=== PATIENT | female | born 1960 | race Caucasian/White ===

== ENCOUNTER 2019-05-15 19:31 | Inpatient (IN) ==
[2019-05-15 20:19] LABS: Hematocrit 44.2 % (35.3-44.9); Hemoglobin 14.8 g/dL (11.5-15.4); Mean Corpuscular HGB Conc 33.5 g/dL (31.6-35.5); Mean Corpuscular Hemoglobin 30.6 pg (28.0-33.3); Mean Corpuscular Volume 91.5 fL (83.0-100.0); Mean Platelet Volume 9.9 fL (9.4-12.4); Platelet Count 286 K/mcL (140-400); Red Blood Count 4.83 M/mcL (3.82-4.97); Red Cell Distribution Width 12.9 % (11.5-14.5); White Blood Count 9.5 K/mcL (4.3-11.1)
[2019-05-15 20:21] LABS: Prothrombin Time 11.1 Seconds (9.4-12.1)
[2019-05-15 20:24] LABS: Activated Partial Thrombo Time 36.6 Seconds (26.0-36.0)
--- NOTE | 2019-05-15 20:41 | Emergency Department Note ---
Disposition Clinical Impression: Neurologic abnormality Disposition: Admitted As Inpatient Condition: Fair Forms: ED Satisfaction Letter Time of Disposition: 21:00 Neuro HPI - General Chief Complaint: ED Neuro Symptoms/Deficit Stated Complaint: neuro symptoms since wednesday Time Seen by Provider: 05/15/19 19:40 Source: patient, family Limitations: no limitations Nursing Notes Reviewed: Yes Vital Signs Reviewed: Yes - History of Present Illness HPI Narrative: 59-year-old female brought to emergency department for evaluation of neurologic deficit. Patient states she has had weakness and paresthesias of the right lower extremity and drooping of the left lower face with slurred speech for the past 3 days. Patient states the symptoms were very severe this morning, she tried to see her primary care provider. When she was unable to get an appointment with that with them she came to the emergency department for further evaluation. She does state that her symptoms have improved significantly over the past 2 hours prior to her evaluation. She denies recent fever, chills, nausea, vomiting, recent trauma. She does have a previous history of CVA that caused slurred speech in the past. She did not have any long lasting deficits after that CVA. Patient has not had any recent changes in her medications. She denies dysuria, hematuria, hematochezia, melena. Denies chest pain, palpitations, shortness of breath, syncope. - Related Data Home Medications: Home Medications Medication Instructions Recorded Confirmed Albuterol Sulfate [Ventolin Hfa] 2 puff IH Q4H PRN 09/27/18 05/15/19 Amlodipine Besylate 10 mg PO DAILY 09/27/18 05/15/19 Atorvastatin Calcium [Lipitor] 80 mg PO HS 09/27/18 05/15/19 Cholecalciferol (D-3) [Vitamin D] 2,000 unit PO DAILY 09/27/18 05/15/19 Losartan/Hydrochlorothiazide 1 tab PO DAILY 09/27/18 05/15/19 [Hyzaar 100-25 Tablet] Metoprolol Succinate 50 mg PO DAILY 09/27/18 05/15/19 Ropinirole HCl [Requip] 0.5 mg PO HS 09/27/18 05/15/19 Sertraline [Zoloft] 100 mg PO DAILY 09/27/18 05/15/19 Previous Rx's Medication Instructions Recorded Aspirin 81 mg PO DAILY #30 tab.chew 09/28/18 Clopidogrel [Plavix] 75 mg PO DAILY #35 tablet 09/28/18 Levothyroxine [Synthroid] 175 mcg PO DAILY@0630 #30 tablet 09/28/18 Allergies/Adverse Reactions: Allergies Allergy/AdvReac Type Severity Reaction Status Date / Time Penicillins Allergy See Verified 05/15/19 19:54 Comments All systems ED: reviewed and negative except as stated. Review of Systems: As Per HPI Past Medical History - Past Medical History Attestation: Yes The following information was validated with the patient. Source: patient Medical history: Reports: asthma, CVA, hyperlipidemia, hypertension, thyroid disease Psychiatric history: Reports: anxiety, depression - Social History Smoking Status: Former smoker Smokeless Tobacco Status: No Alcohol use: Reports: none Drug use: Reports: none Physical Exam General: Alert and in no acute distress Skin: Warm, dry, intact Head: Normocephalic and atraumatic Neck: Supple, trachea midline and no tenderness Cardiovascular: RRR, no murmur, normal perfusion Respiratory: CTAB, no wheezing, cough, or respiratory distress Musculoskeletal: Normal strength, no tenderness, swelling or deformity GI: Soft, nontender, nondistended. Bowel sounds present Neuro: A&O to person, place, time and situation. Muscular strength intact to the bilateral upper and lower extremities. Sensation intact to bilateral upper and lower extremities. Cranial nerves intact to examination however she does have some mild dysarthria present during the exam. No facial droop. Psychiatric: cooperative and appropriate mood and affect. - General Limitations: no limitations General appearance: alert Course Vital Signs Temperature 98.3 F 05/15/19 19:33 Pulse Rate 91 05/15/19 19:33 Respiratory Rate 16 05/15/19 19:33 Blood Pressure 169/90 05/15/19 19:33 O2 Sat by Pulse Oximetry 95 05/15/19 19:33 Temperature 98.3 F 05/15/19 19:50 Pulse Rate 66 05/15/19 20:59 Respiratory Rate 16 05/15/19 20:59 Blood Pressure 137/59 05/15/19 20:59 O2 Sat by Pulse Oximetry 95 05/15/19 20:59 Oxygen Delivery Oxygen Delivery Room Air Neuro Symptoms/Deficit - MDM Narrative Medical decision making narrative: CT of the head did not show evidence of acute intracranial hemorrhage. Patient will be admitted to the hospitalist for further care and evaluation with need for likely MRI. Patient is not a TPA candidate or a candidate for thrombectomy has her symptoms have been present for multiple days. Patient is comfortable with the plan for admission to hospital. - Medical Records Medical records reviewed: Yes I reviewed the patient's medical records. - Lab Data Lab results reviewed: Yes I reviewed the patient's lab results. Result diagrams: 05/15/19 19:53 05/15/19 19:53 Lab Results 05/15/19 05/15/19 05/15/19 Range/Units 19:53 19:53 19:53 WBC 9.5 (4.3-11.1) K/mcL RBC 4.83 (3.82-4.97) M/mcL Hgb 14.8 (11.5-15.4) g/dL Hct 44.2 (35.3-44.9) % MCV 91.5 (83.0-100.0) fL MCH 30.6 (28.0-33.3) pg MCHC 33.5 (31.6-35.5) g/dL RDW 12.9 (11.5-14.5) % Plt Count 286 (140-400) K/mcL MPV 9.9 (9.4-12.4) fL PT 11.1 (9.4-12.1) Seconds INR 1.0 APTT 36.6 H (26.0-36.0) Seconds Sodium 139 (136-145) mEq/L Potassium 3.6 (3.5-5.1) mEq/L Chloride 104 (98-107) mEq/L Carbon Dioxide 27 (23-29) mEq/L BUN 18 (6-20) mg/dL Creatinine 1.08 (0.60-1.20) mg/dL Est GFR ( Amer) > 60 (> 60) Est GFR (Non-Af Amer) 52 L (> 60) BUN/Creatinine Ratio 17 (6-26) Glucose 125 H (70-105) mg/dL POC Glucose (70-99) mg/dL Calculated Osmolality 291 (280-300) Calcium 9.7 (8.6-10.3) mg/dL Troponin I < 0.03 (< 0.04) ng/mL 05/15/19 Range/Units 20:42 WBC (4.3-11.1) K/mcL RBC (3.82-4.97) M/mcL Hgb (11.5-15.4) g/dL Hct (35.3-44.9) % MCV (83.0-100.0) fL MCH (28.0-33.3) pg MCHC (31.6-35.5) g/dL RDW (11.5-14.5) % Plt Count (140-400) K/mcL MPV (9.4-12.4) fL PT (9.4-12.1) Seconds INR APTT (26.0-36.0) Seconds Sodium (136-145) mEq/L Potassium (3.5-5.1) mEq/L Chloride (98-107) mEq/L Carbon Dioxide (23-29) mEq/L BUN (6-20) mg/dL Creatinine (0.60-1.20) mg/dL Est GFR ( Amer) (> 60) Est GFR (Non-Af Amer) (> 60) BUN/Creatinine Ratio (6-26) Glucose (70-105) mg/dL POC Glucose 116 H (70-99) mg/dL Calculated Osmolality (280-300) Calcium (8.6-10.3) mg/dL Troponin I (< 0.04) ng/mL - Radiology Data Radiology results reviewed: Yes I reviewed the patient's radiology results. - EKG Data EKG attestation: Yes I reviewed and interpreted this EKG. EKG results narrative: Normal sinus rhythm with a rate of 68 without evidence of STEMI or other dysrhythmia. QTC 434, QRS of 93 TPA Checklist - LKW: 3-4.5 hrs Add. Warnings/Precautions Patient/family understanding: The patient/family members have been counseled and understood the risk, benefit, and alternatives of treatment.
[2019-05-15] MEDS ORDERED: Aspirin 81 MG TAB.CHEW PO ONE (20:42)
[2019-05-15 20:55] LABS: BUN/Creatinine Ratio 17 (6-26); Blood Urea Nitrogen 18 mg/dL (6-20); Calcium 9.7 mg/dL (8.6-10.3); Carbon Dioxide 27 mEq/L (23-29); Chloride 104 mEq/L (98-107); Glucose 125 mg/dL (70-105); Osmolality,Calculated 291 (280-300); Potassium 3.6 mEq/L (3.5-5.1); Sodium 139 mEq/L (136-145); Troponin I < 0.03 ng/mL (< 0.04); eGFR For African Americans > 60 (> 60); eGFR For Non-African Americans 52 (> 60)
[2019-05-15] MEDS ORDERED: Naloxone 0.4 MG/ML INJ IVP PRN (21:14)
[2019-05-16] MEDS: rOPINIRole 0.25 MG TABLET PO SCH ×2 (00:20→20:54)
--- NOTE | 2019-05-16 00:59 | Internal Med History&Physical ---
Date of Encounter: 05/16/19 Time of Encounter: 00:57 Internal Medicine - H&P: HPI Chief complaint: Strokelike symptoms History of present illness: Ms. Anaya is a 59 year old female with a PMH of asthma, CVA, thyroid disease, HTN, arthritis, HLD who presented to [facility] ED DUE to concern for strokelike symptoms. Patient states that last Wednesday she noted that her entire right leg felt numb as if it had gone to sleep which occurred as she was getting out of her car. She thought maybe it was from sitting too long. Symptoms persisted but patient nonetheless went on with her day. The following Wednesday patient noted slurred speech early in the morning. Patient decided to wait and see her primary care physician Wednesday morning, however, discovered that he was unavail able and decided to come in for further evaluation. Upon arrival to the ED, patients vital signs were as follows: Temp 97.6, HR 93, RR 24, BP 169/90, pulse ox 95. Laboratory analysis was unremarkable. CT of the head showed no acute intracranial abnormality, but demonstrated diffuse atrophic changes with findings suggesting chronic microvascular ischemia and small old infarcts in the basal ganglia and arias radiata bilaterally. EKG demonstrated no evidence of ischemic changes, unchanged from previous EKG. Patient was given a loading dose of aspirin in the ED. Patient was seen and examined at bedside; reports that her symptoms have slightly improved but still states she feels her speech is still slightly slurred. She denies chest pain, vertigo, lightheadedness, visual disturbances, weakness, headache, blurred vision palpitations. Past Med Surg Social Fam HX - Past Medical History Medical history: asthma, CVA, hyperlipidemia, hypertension, thyroid disease Psychiatric history: anxiety, depression - Past Surgical History Surgical History: appendectomy, hysterectomy - Social History Smoking Status: Former smoker Smokeless Tobacco Status: No Alcohol use: none Drug use: none - Family History Father Living Status: Still Living Hx Family Cardiac Disorders: Yes (double bipass) Hx Family Respiratory Disorders: No Hx Family Cancer: No Hx Family GI Disorders: No Hx Family Genitourinary Disorders: No Hx Family Endocrine Disorder: Yes (thyroid, DM) Hx Family Musculoskeletal Disorders: No Hx Family Neuromuscular Disorders: No Hx Family Neurologic Disorders: No Hx Family Autoimmune Disorders: No Mother Adopted: No Living Status: Age at : 57 Cause of : cancer Hx Family Cardiac Disorders: No Hx Family Respiratory Disorders: No Hx Family Cancer: Yes (unknown) Hx Family GI Disorders: No Hx Family Genitourinary Disorders: No Hx Family Endocrine Disorder: No Hx Family Musculoskeletal Disorders: No Hx Family Neuromuscular Disorders: No Hx Family Neurologic Disorders: No Hx Family Autoimmune Disorders: No Hx Family Reproductive Disorders: No Internal Medicine - H&P: Meds Albuterol Sulfate [Ventolin Hfa] 2 puff IH Q4H PRN 09/27/18 [History] Amlodipine Besylate 10 mg PO DAILY 09/27/18 [History] Atorvastatin Calcium [Lipitor] 80 mg PO HS 09/27/18 [History] Cholecalciferol (D-3) [Vitamin D] 2,000 unit PO DAILY 09/27/18 [History] Losartan/Hydrochlorothiazide [Hyzaar 100-25 Tablet] 1 tab PO DAILY 09/27/18 [History] Metoprolol Succinate 50 mg PO DAILY 09/27/18 [History] Ropinirole HCl [Requip] 0.5 mg PO HS 09/27/18 [History] Sertraline [Zoloft] 100 mg PO DAILY 09/27/18 [History] Aspirin 81 mg PO DAILY #30 tab.chew 09/28/18 [Rx] Clopidogrel [Plavix] 75 mg PO DAILY #35 tablet 09/28/18 [Rx] Levothyroxine [Synthroid] 175 mcg PO DAILY@0630 #30 tablet 09/28/18 [Rx] Allergy/AdvReac Type Severity Reaction Status Date / Time Penicillins Allergy See Verified 05/15/19 19:54 Comments All Systems PM: A 10-system review of systems was performed and is negative for pertinent findings except as documented above in the HPI. - Constitutional Constitutional: no chills, no fever(s), no night sweats - EENT Eyes: no change in vision, no discharge, no pain, no photophobia Ears: no ear discharge, no ear pain, no tinnitus Nose, mouth and throat: no dysphagia, no nasal discharge, no neck pain, no sore throat - Cardiovascular Cardiovascular ROS IM: no chest pain, no diaphoresis, no dyspnea, no lightheadedness, no palpitations, no syncope - Respiratory Respiratory: no cough, no dyspnea, no wheezing, no excessive phlegm production - Gastrointestinal Gastrointestinal: no abdominal pain, no diarrhea, no hematemesis, no hematochezia, no melena, no nausea, no vomiting - Genitourinary Genitourinary: no change in urinary stream, no dysuria, no flank pain, no hematuria - Musculoskeletal Musculoskeletal ROS IM: no numbness, no tingling - Integumentary Integumentary IM: no rash, no unusual bruising - Neurological Neurological ROS: no confusion, no convulsions, no focal weakness, no numbness, no tingling, no tremor(s) - Hematologic/Lymphatic Hematologic/Lymphatic: no easy bruising - Constitutional Vitals: Temp Pulse Resp BP Pulse Ox 97.6 F 69 24 131/62 95 05/15/19 22:23 05/15/19 22:23 05/15/19 22:23 05/15/19 22:23 05/15/19 22:23 Exam: General: Alert and oriented 3 lying in bed in no acute distress Skin:Normal color, no rash, no lesions. HEENT:EOM, pupils equal, round and reactive. Cardiovascular:Normal S1 & S2, no rubs, murmurs or gallops. No JVD. Pulse regular. Lungs:Normal breath sounds, no wheezes or crackles. Abdomen:Soft, non-tender, no rigidity. Extremities:No deformity, no edema or tenderness, no joint swelling or clubbing. Neurological:Normal cognition; cranial nerves II through XII intact; no pronator drift; sensation intact; upper and lower extremity muscle strength 5 out of 5 bilaterally. Pulses:Carotid and radial pulses normal +2. Rest of the physical exam is non contributory Internal Med - H&P Results - Labs CBC & Chem 7: 05/15/19 19:53 05/16/19 02:24 Labs: Short CBC 05/15/19 Range/Units 19:53 WBC 9.5 (4.3-11.1) K/mcL Hgb 14.8 (11.5-15.4) g/dL Hct 44.2 (35.3-44.9) % Plt Count 286 (140-400) K/mcL BMP 05/15/19 19:53 Sodium 139 Potassium 3.6 Chloride 104 Carbon Dioxide 27 BUN 18 Creatinine 1.08 Glucose 125 H Calcium 9.7 Cardiac Enzymes 05/15/19 Range/Units 19:53 Troponin I < 0.03 (< 0.04) ng/mL - Impressions ITS Impressions Head CT 05/15/19 19:57 IMPRESSION: No acute intracranial abnormality. Diffuse atrophic changes with findings suggesting chronic microvascular ischemia and small old infarcts in the basal ganglia and arias radiata bilaterally. D/ / Darrick Alexis MD / Darrick Alexis MD Interpreting Provider: Darrick Alexis MD - Assessment and Plan (1) CVA (cerebral vascular accident) Current Visit: No Status: Acute Assessment and plan: Presented with slurred speech and and numbness in her right lower extremity. Most of her symptoms seem to have resolved though states speech is still somewhat slurred. Patient received loading dose of aspirin in the ED - Known history of CVA 2 last of which was in last September. - Currently takes aspirin 81 mg and Lipitor 80 mg - CT head demonstrated no acute intracranial abnormalities; diffuse atrophic changes with findings suggesting chronic microvascular ischemia and small old infarcts in the basal ganglia and arias radiata bilaterally. Plan: - Will resume patient's home ASA and statin -Hold antihypertensives for permissive hypertension -Echo/carotid duplex - MRI of the brain - Neurology consult Qualifiers: Laterality of affected vessel: unspecified Qualified Code(s): I63.019 - Cerebral infarction due to thrombosis of unspecified vertebral artery (2) HTN (hypertension) Current Visit: No Status: Acute Assessment and plan: Blood pressure stable. Hold antihypertensives for 24 hours Qualifiers: Hypertension type: essential hypertension Qualified Code(s): I10 - Essential (primary) hypertension (3) Hyperlipidemia Current Visit: No Status: Acute Assessment and plan: Resume statin medication Qualifiers: Qualified Code(s): E78.5 - Hyperlipidemia, unspecified (4) Hypothyroidism Current Visit: No Status: Acute Assessment and plan: Resume levothyroxine Qualifiers: Qualified Code(s): E03.9 - Hypothyroidism, unspecified (5) DVT prophylaxis Current Visit: Yes Status: Acute Assessment and plan: Subcutaneous heparin - Time Spent With Patient Total time spent is greater than 50% in coordination of care (as documented) at patient's floor/unit and/or counseling patient:
[2019-05-16] MEDS: *HR* Heparin 5,000 UNIT/ML VIAL SQ SCH ×4 (01:23→20:54)
[2019-05-16 02:54] LABS: Prothrombin Time 10.8 Seconds (9.4-12.1)
[2019-05-16 02:58] LABS: Alanine Aminotransferase 16 Units/L (7-52); Albumin 4.1 g/dL (3.5-5.7); Albumin/Globulin Ratio 1.4 (1.1-2.2); Alkaline Phosphatase 90 Units/L (34-104); Aspartate Amino Transferase 23 Units/L (13-39); BUN/Creatinine Ratio 21 (6-26); Bilirubin,Total 0.7 mg/dL (0.3-1.0); Blood Urea Nitrogen 19 mg/dL (6-20); Calcium 9.3 mg/dL (8.6-10.3); Carbon Dioxide 25 mEq/L (23-29); Chloride 103 mEq/L (98-107); Chol/HDL Ratio 3.6 (0-4.9); Cholesterol 203 mg/dL (< 200); Globulin 2.9 g/dL (2.4-3.5); Glucose 103 mg/dL (70-105); HDL Cholesterol 56 mg/dL (40-59); LDL Cholesterol,Calculated 132 mg/dL (0-99); Osmolality,Calculated 289 (280-300); Potassium 3.6 mEq/L (3.5-5.1); Sodium 138 mEq/L (136-145); Triglycerides 76 mg/dL (< 150); Troponin I < 0.03 ng/mL (< 0.04); eGFR For African Americans > 60 (> 60); eGFR For Non-African Americans > 60 (> 60)
[2019-05-16 07:11] LABS: Estimated Average Glucose 108 mg/dl
[2019-05-16] MEDS: Aspirin 81 MG TAB.CHEW PO SCH (08:30)
[2019-05-16] MEDS: Cholecalciferol (D-3) 1,000 UNIT TABLET PO SCH (08:30)
[2019-05-16] MEDS: Metoprolol XL (24 HR) Succ 50 MG TAB.ER.24H PO SCH (08:30)
--- NOTE | 2019-05-16 08:30 | Event Note ---
Date of Encounter: 05/16/19 Time of Encounter: 08:00 Seen and assessed. Agree with plan per night team Plan New right sided weakness r/o stroke. Initial CT head shows no acute findings. F/U MRI head, echo and carotid ultrasound. Contine aspirin and plavix PT/OT consulted
--- NOTE | 2019-05-16 13:34 | Neurology - Consult Note ---
Date of Encounter: 05/16/19 Time of Encounter: 13:31 Assessment and Plan (1) CVA (cerebral vascular accident) Current Visit: No Status: Acute Patient is definitely experiencing strokelike symptoms. This is particularly concerning in lieu of the fact that she is had previous lacunar infarcts bilaterally. She was last admitted for strokelike symptoms in September 2018. She has had labile blood pressure readings. Carotid Doppler studies revealed nonstenotic plaquing. I am going to recommend echocardiogram and await the MRI scan of the brain. If this is yet another small vessel infarct in the morning not being much more to offer in addition to aspirin and Plavix. However, stroke protocol nursing orders should remain in effect. I would recommend normalizing her blood pressure at this point. Statins are also indicated. Recommendations will be made pending the outcome of the MRI and echocardiogram. She may also need PT and OT and speech therapy. Qualifiers: Laterality of affected vessel: unspecified Qualified Code(s): I63.019 - Cerebral infarction due to thrombosis of unspecified vertebral artery History of Present Illness HPI: The chart was reviewed, the patient was seen and examined. Ms. Anaya is a 59 year old female with a prior known history of strokes most recently September 2018 was admitted secondary to symptoms of right lower extremity paresthesia, slurred speech as well as complaints of left facial droop. Symptoms actually began 3 days prior to her admission day. She states that she had been riding in a car and then she got out of the car she felt some right lower extremity pain and weakness. However she proceeded on to her day. Then 2 days later she began to have some speech difficulty and noticed a left facial droop. She denied headache denied nausea vomiting or confusion. She did have a CT scan of the brain completed in the ED which shows previous infarcts in the left basal ganglia and centrum semiovale ovale, as well as the right basal ganglia and centrum semiovale ovale. Carotid Doppler study reveals nonstenotic plaquing. MRI scan of the brain is pending. She does have a history of hyperlipidemia and previous strokes as well as hypertension. She denies diabetes. Pressure upon admission was 169/90. Past Med Surg Social Fam HX - Past Medical History Medical history: asthma, CVA, hyperlipidemia, hypertension, thyroid disease Psychiatric history: anxiety, depression - Past Surgical History Surgical History: appendectomy, hysterectomy - Social History Smoking Status: Former smoker Smokeless Tobacco Status: No Alcohol use: none Drug use: none - Family History Father Living Status: Still Living Hx Family Cardiac Disorders: Yes (double bipass) Hx Family Respiratory Disorders: No Hx Family Cancer: No Hx Family GI Disorders: No Hx Family Genitourinary Disorders: No Hx Family Endocrine Disorder: Yes (thyroid, DM) Hx Family Musculoskeletal Disorders: No Hx Family Neuromuscular Disorders: No Hx Family Neurologic Disorders: No Hx Family Autoimmune Disorders: No Mother Adopted: No Living Status: Age at : 57 Cause of : cancer Hx Family Cardiac Disorders: No Hx Family Respiratory Disorders: No Hx Family Cancer: Yes (unknown) Hx Family GI Disorders: No Hx Family Genitourinary Disorders: No Hx Family Endocrine Disorder: No Hx Family Musculoskeletal Disorders: No Hx Family Neuromuscular Disorders: No Hx Family Neurologic Disorders: No Hx Family Autoimmune Disorders: No Hx Family Reproductive Disorders: No Medications and Allergies Albuterol Sulfate [Ventolin Hfa] 2 puff IH Q4H PRN 09/27/18 [History] Amlodipine Besylate 10 mg PO DAILY 09/27/18 [History] Atorvastatin Calcium [Lipitor] 80 mg PO HS 09/27/18 [History] Cholecalciferol (D-3) [Vitamin D] 2,000 unit PO DAILY 09/27/18 [History] Losartan/Hydrochlorothiazide [Hyzaar 100-25 Tablet] 1 tab PO DAILY 09/27/18 [History] Metoprolol Succinate 50 mg PO DAILY 09/27/18 [History] Ropinirole HCl [Requip] 0.5 mg PO HS 09/27/18 [History] Sertraline [Zoloft] 100 mg PO DAILY 09/27/18 [History] Aspirin 81 mg PO DAILY #30 tab.chew 09/28/18 [Rx] Clopidogrel [Plavix] 75 mg PO DAILY #35 tablet 09/28/18 [Rx] Levothyroxine [Synthroid] 175 mcg PO DAILY@0630 #30 tablet 09/28/18 [Rx] Allergy/AdvReac Type Severity Reaction Status Date / Time Penicillins Allergy See Verified 05/15/19 19:54 Comments All Systems: The remainder of the systems were reviewed and are negative Review of Systems: The balance of the systems review is negative. Physical Examination - Vital Signs Vital Signs: Initial Vital Signs Temp Pulse Resp BP Pulse Ox 98.3 F 91 16 169/90 95 05/15/19 19:33 05/15/19 19:33 05/15/19 19:33 05/15/19 19:33 05/15/19 19:33 - Exam Exam: General Examination: *CONSTITUTIONAL: normal *GENERAL APPEARANCE OF PATIENT appears healthy and well groomed *EYES: pupils equal, round, reactive to light and accommodation, conjunctiva clear without masses or ulcerations, fundi normal. *CARDIOVASCULAR no peripheral edema, distal temperature normal, dorsalis pedis pulses normal. Refer to vital signs Musculoskeletal: *GAIT AND STATION normal, with normal Romberg testing, no abnormalities such as broad base gait or spasticity *ASSESSMENT OF MUSCLE STRENGTH is 4/5 strength of the left deltoid, triceps as well as left biceps. The left mobility developer strength is 3/5. She has normal strength of all muscles of the left lower extremity. Right upper extremity strength is 5/5 in all muscles. However the right iliopsoas and quadriceps strength is 4/5. Tibialis anterior strength is 5/5 in both legs symmetrically. No involuntary movements or atrophy are identified. *MUSCLE TONE IN THE UPPER AND LOWER EXTREMITIES normal. No abnormal movements, fasciculations or atrophy identified. Neurological: *ORIENTATION to time and place *RECURRENT AND REMOTE MEMORY intact *ATTENTION AND CONCENTRATION are normal *LANGUAGE FUNCTION no significant aphasia or dysarthia was noted. *FUND OF KNOWLEDGE aware of current events, past history, vocabulary *MENTAL attention span and concentration normal. *CN II optic fundi were normal, no papilledema noted. *CN III,IV, PERRLA extraocular eye movements were full, no nystagmus and no ptosis noted. *CN V shows normal sensation and jaw opens symmetrically. *CN VII shows normal facial movement symmetrically, upper and lower bilaterally. I am not convinced of a facial droop at this time. *CN VIII shows no significant hearing loss on examination in the office. *CN IX,,X palate elevated symmetrically and normal gag reflex was noted. *CN XI normal strength in the sternocleidomastoid muscles, symmetrical shoulder shrugging. *CN XII tongue protruded in the midline, with normal strength and movement. *SENSORY EXAMINATION pinprick sensation intact, and light touch(vibration sense). *REFLEXES: deep tendon reflexes were normal at 2/4 symmetrically of the biceps triceps and brachial radialis. Patellar and Achilles reflexes were absent symmetrically. *CEREBELLAR TESTING normal finger to nose, heel/knee/ramirez, and tandem walk. *PAIN LEVEL 0 Results - Laboratory Findings CBC and BMP: 05/15/19 19:53 05/16/19 02:24 Abnormal lab findings: Abnormal lab results APTT 36.6 Seconds (26.0-36.0) H 05/15/19 19:53 Est GFR (Non-Af Amer) 52 (> 60) L 05/15/19 19:53 Glucose 125 mg/dL (70-105) H 05/15/19 19:53 POC Glucose 116 mg/dL (70-99) H 05/15/19 20:42 Cholesterol 203 mg/dL (< 200) H 05/16/19 02:24 LDL Cholesterol, Calc 132 mg/dL (0-99) H 05/16/19 02:24 Consult Discharge Plan - Plan Referrals: Zhao Harrison MD [Primary Care Provider] -
--- NOTE | 2019-05-16 14:42 | Electrocardiograph Report ---
[address] [place], [place] [address] Test Date: 2019-05-15 Pat Name: Isaura Anaya Department: [id number] Room: 2N1 Gender: F [employer] Worker: : 1960 Requested By: Casey Holland Order Number: [id number] Reading MD: Yusuf Mancuso Measurements Intervals [place] Rate: 68 P: 55 ND: 130 QRS: 43 QRSD: 93 T: -45 QT: 408 QTc: 434 Interpretive Statements Sinus rhythm BASELINE ARTIFACT Consider diffuse ischemia Electronically Signed On 05-16-2019 14:40:55 EDT by Yusuf Mancuso
[2019-05-17] MEDS: *HR* Heparin 5,000 UNIT/ML VIAL SQ SCH (05:39)
[2019-05-17 07:03] LABS: Basophils # 0.1 K/mcL (0.0-0.2); Basophils % 1.1 %; Eosinophils # 0.1 K/mcL (0.0-0.6); Eosinophils % 1.8 %; Hematocrit 40.3 % (35.3-44.9); Immature Granulocytes % 0.5 % (0-4); Lymphocytes # 0.7 K/mcL (0.6-4.6); Lymphocytes % 12.8 %; Mean Corpuscular HGB Conc 32.8 g/dL (31.6-35.5); Mean Corpuscular Hemoglobin 29.7 pg (28.0-33.3); Mean Corpuscular Volume 90.8 fL (83.0-100.0); Mean Platelet Volume 9.9 fL (9.4-12.4); Monocytes # 0.5 K/mcL (0.0-1.3); Monocytes % 9.3 %; Neutrophils # 4.2 K/mcL (1.6-8.9); Platelet Count 232 K/mcL (140-400); Red Blood Count 4.44 M/mcL (3.82-4.97); Red Cell Distribution Width 12.6 % (11.5-14.5); Segmented Neutrophils % 74.5 %; White Blood Count 5.6 K/mcL (4.3-11.1)
[2019-05-17 07:08] LABS: Hemoglobin 13.2 g/dL (11.5-15.4)
[2019-05-17 07:23] LABS: BUN/Creatinine Ratio 19 (6-26); Blood Urea Nitrogen 18 mg/dL (6-20); Calcium 9.2 mg/dL (8.6-10.3); Carbon Dioxide 28 mEq/L (23-29); Chloride 102 mEq/L (98-107); Glucose 103 mg/dL (70-105); Magnesium 2.1 mg/dL (1.6-2.6); Osmolality,Calculated 290 (280-300); Phosphorous 3.8 mg/dL (2.7-4.5); Potassium 3.5 mEq/L (3.5-5.1); Sodium 139 mEq/L (136-145); eGFR For African Americans > 60 (> 60); eGFR For Non-African Americans > 60 (> 60)
[2019-05-17] MEDS: Cholecalciferol (D-3) 1,000 UNIT TABLET PO SCH (10:02)
[2019-05-17] MEDS: Aspirin 81 MG TAB.CHEW PO SCH (10:02)
[2019-05-17] MEDS: Metoprolol XL (24 HR) Succ 50 MG TAB.ER.24H PO SCH (10:02)
[2019-05-17 11:20] VITALS: BP 128/73
--- NOTE | 2019-05-17 12:52 | Discharge Summary ---
- NOTES TO OUTPATIENT PROVIDER Notes to Outpatient Provider: Patient with history of asthma, prior CVA, thyroid disease, hypertension and hyperlipidemia was hospitalized here after presenting to the ER with complaints of slurred speech. She had symptoms of right-sided numbness 2 days prior. She was hospitalized and worked up for stroke. MRI of the brain was done which showed acute lacunar infarct within the left mid arias radiata. Her speech deficits and numbness have now resolved completely. She has been evaluated by neurology and by physical therapy and cleared for discharge. Patient will continue to take aspirin, Plavix and statin. She will follow up with neurology and her primary care provider as outpatient. Orders not resulted at time of discharge: Pending orders 05/18/19 04:00 Basic Metabolic Panel AM 0400 CBC [Complete Blood Count] [HEME] AM 0400 Magnesium AM 0400 Phosphorous AM 0400 05/19/19 04:00 Basic Metabolic Panel AM 0400 CBC [Complete Blood Count] [HEME] AM 0400 Magnesium AM 0400 Phosphorous AM 0400 05/20/19 04:00 Basic Metabolic Panel AM 0400 CBC [Complete Blood Count] [HEME] AM 0400 Magnesium AM 0400 Phosphorous AM 0400 05/21/19 04:00 Basic Metabolic Panel AM 0400 CBC [Complete Blood Count] [HEME] AM 0400 Magnesium AM 0400 Phosphorous AM 0400 05/22/19 04:00 Basic Metabolic Panel AM 0400 CBC [Complete Blood Count] [HEME] AM 0400 Magnesium AM 0400 Phosphorous AM 0400 Date of Encounter: 05/17/19 Time of Encounter: 12:50 - Discharge Diagnosis (1) CVA (cerebral vascular accident) Priority: Primary Status: Acute Qualifiers: CVA mechanism: unspecified Qualified Code(s): I63.9 - Cerebral infarction, unspecified (2) HTN (hypertension) Priority: Secondary Status: Acute Qualifiers: Hypertension type: essential hypertension Qualified Code(s): I10 - Essential (primary) hypertension (3) Hyperlipidemia Priority: Secondary Status: Acute Qualifiers: Qualified Code(s): E78.5 - Hyperlipidemia, unspecified (4) Hypothyroidism Priority: Secondary Status: Acute Qualifiers: Qualified Code(s): E03.9 - Hypothyroidism, unspecified (5) DVT prophylaxis Priority: Secondary Status: Acute (6) Morbid obesity with BMI of 50.0-59.9, adult Priority: Secondary Status: Acute Hospital course: Ms. Anaya is a 59 year old female Patient with history of asthma, prior CVA, thyroid disease, hypertension and hyperlipidemia was hospitalized here after presenting to the ER with slurred speech and also had numbness in her right lower extremity 2 days prior which did not resolve spontaneously. She was hospitalized and worked up for stroke. MRI of the brain was done which showed acute lacunar infarct within the left mid arias radiata. Her speech deficits and numbness have now resolved completely. She has been evaluated by neurology and by physical therapy and cleared for discharge. Patient will continue to take aspirin, Plavix and statin. She will follow up with neurology and her primary care provider as outpatient. Discharge discussed with: patient, family - Time Spent with Patient Total time spent providing and/or coordinating discharge services: Time spent: Less than 30 minutes (25 min) - Discharge Medications Prescriptions: New Clopidogrel [Plavix] 75 mg PO DAILY #30 tablet rOPINIRole [Requip] 0.5 mg PO HS #30 tablet Cholecalciferol (D-3) [Vitamin D] 1,000 unit PO DAILY tablet Aspirin Enteric Coated [Aspirin EC] 81 mg PO DAILY #30 tablet. Atorvastatin Calcium [Lipitor] 80 mg PO HS #30 tab Continued Albuterol Sulfate [Ventolin Hfa] 2 puff IH Q6H PRN PRN Reason: Shortness Of Breath Losartan/Hydrochlorothiazide [Losartan-Hctz 100-25 mg Tab] 1 tab PO DAILY Levothyroxine Sodium 150 mcg PO QAM Home Medications: Albuterol Sulfate [Ventolin Hfa] 2 puff IH Q6H PRN 05/17/19 [History] Aspirin Enteric Coated [Aspirin EC] 81 mg PO DAILY #30 tablet. 05/17/19 [Rx] Atorvastatin Calcium [Lipitor] 80 mg PO HS #30 tab 05/17/19 [Rx] Cholecalciferol (D-3) [Vitamin D] 1,000 unit PO DAILY tablet 05/17/19 [Rx] Clopidogrel [Plavix] 75 mg PO DAILY #30 tablet 05/17/19 [Rx] Levothyroxine Sodium 150 mcg PO QAM 05/17/19 [History] Losartan/Hydrochlorothiazide [Losartan-Hctz 100-25 mg Tab] 1 tab PO DAILY 05/17/19 [History] rOPINIRole [Requip] 0.5 mg PO HS #30 tablet 05/17/19 [Rx] Allergies/Adverse Reactions: Allergy/AdvReac Type Severity Reaction Status Date / Time Penicillins Allergy See Verified 05/15/19 19:54 Comments Date of admission: 05/16/19 15:30 Primary care physician: Zhao Harrison MD Consults: 05/15/19 21:15 Consult to Neurology [CONS] Routine Consulting Provider: [facility] Reason for Consult: Stroke like Sx; possible TIA Call Completed: No Discharging clinician: Roney Kovacs Anticipated date of discharge: 05/17/19 - Constitutional Vitals: Temp Pulse Resp BP Pulse Ox 98.2 F 61 16 128/73 97 05/17/19 11:15 05/17/19 11:15 05/17/19 11:15 05/17/19 11:15 05/17/19 11:15 Exam: General: Patient is alert, morbidly obese, no acute distress, oriented x 3 Respiratory: Good respiratory effort. Normal breath sounds. No wheezing or crackles. Cardiovascular: Regular rate and rhythm. s1 and s2 normal No clicks, rubs, gallops, or murmurs. No pedal edema Abdomen: Abdomen is soft, nontender. Bowel sounds are present Musculoskeletal: Spontaneously moving all extremities Skin: warm, dry, intact. Neuro: Alert oriented x 3 normal cranial nerves, no focal deficits - Patient Status Disposition: Home, Self-Care Condition: Good Functional capacity at discharge: independent ambulation Overall status at discharge: patient is not back to baseline - Discharge Instructions Instructions: Chronic Hypertension (DC) Follow Up With: Zhao Harrison MD [Primary Care Provider] - (In 1 week) Darrick Gracia DO [Partnered Physician] - (Follow-up for recurrent CVA) - Diet and Activity Activity: increase activity as tolerated Diet: advance to your usual diet, low fat, low cholesterol, low salt diet
--- NOTE | 2019-05-17 13:47 | Neurology Progress Note ---
<Kehinde Hernandez - Last Filed: 05/17/19 13:44> Date of Encounter: 05/17/19 Time of Encounter: 13:44 Assessment and Plan (1) CVA (cerebral vascular accident) Status: Acute Confirmed acute CVA on MRI imaging. The patient has experienced an acute lacunar infarct within the left mid arias radiata. However, at this time she is back to her baseline state without any neurological deficits on exam. She has most likely experiencing small vessel ischemic event. Stroke workup included BRITTANIE which showed an EF of 60%, no PFO, valvular abnormalities or intracardiac thrombus identified. Carotid duplex scan was completed revealing nonstenotic plaque bilaterally. Since that she most likely he experienced was a small vessel event we continue to recommend aspirin and Plavix as well as statin therapy. Again I strongly encouraged risk factor modifications the patient was able to verbalize understanding. Neurology will sign off at this time. She is okay to discharge at the discretion of the primary team. Qualifiers: CVA mechanism: unspecified Qualified Code(s): I63.9 - Cerebral infarction, unspecified Subjective Principal diagnosis: Acute CVA Interval history: The chart was reviewed, and the patient was seen and examined at the bedside today. She reports that her slurred speech and facial droop Improved significantly since admission. Yesterday she underwent MRI evaluation of the brain which showed an acute lacunar infarct in the left mid arias radiata. I discussed the MRI findings. Further, I discussed aggressive risk factor modifications and medication compliance with ASA, Plavix and Statin medications. Objective - Constitutional Vitals: Temp Pulse Resp BP Pulse Ox 98.2 F 61 16 128/73 97 05/17/19 11:15 05/17/19 11:15 05/17/19 11:15 05/17/19 11:15 05/17/19 11:15 Exam: General Examination: *CONSTITUTIONAL: Alert and oriented x3, no acute distress *GENERAL APPEARANCE OF PATIENT Obese female who appears healthy and well groomed *EYES: pupils equal, round, reactive to light and accommodation, conjunctiva clear *CARDIOVASCULAR no peripheral edema, distal temperature normal, dorsalis pedis pulses normal. Refer to vital signs Musculoskeletal: *GAIT AND STATION normal, with normal Romberg testing, no abnormalities such as broad base gait or spasticity *ASSESSMENT OF MUSCLE STRENGTH is 5/5 strength of the left deltoid, triceps as well as left biceps. The left social work associate strength is 5/5. She has normal strength of all muscles of the left lower extremity. Right upper extremity strength is 5/5 in all muscles. However the right iliopsoas and quadriceps strength is 5/5. Tibialis anterior strength is 5/5 in both legs symmetrically. No involuntary movements or atrophy are identified. *MUSCLE TONE IN THE UPPER AND LOWER EXTREMITIES normal. No abnormal movements, fasciculations or atrophy identified. Neurological: *ORIENTATION to time and place *RECURRENT AND REMOTE MEMORY intact *ATTENTION AND CONCENTRATION are normal *LANGUAGE FUNCTION no significant aphasia or dysarthia was noted. *FUND OF KNOWLEDGE aware of current events, past history, vocabulary *MENTAL attention span and concentration normal. *CN II optic fundi were normal, no papilledema noted. *CN III,IV, PERRLA extraocular eye movements were full, no nystagmus and no ptosis noted. *CN V shows normal sensation and jaw opens symmetrically. *CN VII shows normal facial movement symmetrically, upper and lower bilaterally. *CN VIII shows no significant hearing loss on examination in the office. *CN IX,,X palate elevated symmetrically and normal gag reflex was noted. *CN XI normal strength in the sternocleidomastoid muscles, symmetrical shoulder shrugging. *CN XII tongue protruded in the midline, with normal strength and movement. *SENSORY EXAMINATION pinprick sensation intact, and light touch intact *REFLEXES: deep tendon reflexes were normal at 2/4 symmetrically of the biceps triceps and brachial radialis. Patellar and Achilles reflexes were absent symmetrically. *CEREBELLAR TESTING normal finger to nose, heel/knee/ramirez, and tandem walk. *PAIN LEVEL 0 Results - Laboratory Findings CBC and BMP: 05/17/19 06:33 05/17/19 06:33 Abnormal lab findings: Abnormal lab results APTT 36.6 Seconds (26.0-36.0) H 05/15/19 19:53 Est GFR (Non-Af Amer) 52 (> 60) L 05/15/19 19:53 Glucose 125 mg/dL (70-105) H 05/15/19 19:53 POC Glucose 116 mg/dL (70-99) H 05/15/19 20:42 Cholesterol 203 mg/dL (< 200) H 05/16/19 02:24 LDL Cholesterol, Calc 132 mg/dL (0-99) H 05/16/19 02:24 Consult Discharge Plan - Plan Instructions: Aspirin (By mouth), Atorvastatin (By mouth), Ropinirole (By mouth), Clopidogrel (By mouth), Sleep Apnea Syndrome (DC), Hypothyroidism (DC), Ischemic Stroke (DC), Chronic Hypertension (DC), Hypertensive Crisis (DC) Referrals: Darrick Gracia DO [Partnered Physician] - (Follow-up for recurrent CVA) Zhao Harrison MD [Primary Care Provider] - (In 1 week) Prescriptions: Aspirin Enteric Coated [Aspirin EC] 81 mg PO DAILY #30 tablet. Atorvastatin Calcium [Lipitor] 80 mg PO HS #30 tab Clopidogrel [Plavix] 75 mg PO DAILY #30 tablet rOPINIRole [Requip] 0.5 mg PO HS #30 tablet <Cayden Akins I - Last Filed: 05/19/19 11:03> Date of Encounter: 05/17/19 Assessment and Plan (1) CVA (cerebral vascular accident) Status: Acute I have personally performed a face to face diagnostic evaluation, including HPI, EXAM, which is included in the Assesment and plan, which was discussed with Kehinde Hernandez CNP, I agree with the above outlined documentation. Cayden Akins MD. NeurologyI Qualifiers: CVA mechanism: unspecified Qualified Code(s): I63.9 - Cerebral infarction, unspecified Objective - Constitutional Vitals: Temp Pulse Resp BP Pulse Ox 98.2 F 61 16 128/73 97 05/17/19 11:15 05/17/19 11:15 05/17/19 11:15 05/17/19 11:15 05/17/19 11:15 Results - Laboratory Findings CBC and BMP: 05/17/19 06:33 05/17/19 06:33 Abnormal lab findings: Abnormal lab results APTT 36.6 Seconds (26.0-36.0) H 05/15/19 19:53 Est GFR (Non-Af Amer) 52 (> 60) L 05/15/19 19:53 Glucose 125 mg/dL (70-105) H 05/15/19 19:53 POC Glucose 116 mg/dL (70-99) H 05/15/19 20:42 Cholesterol 203 mg/dL (< 200) H 05/16/19 02:24 LDL Cholesterol, Calc 132 mg/dL (0-99) H 05/16/19 02:24
== END 2019-05-17 14:35 | disposition home or self-care (01) | DRG 65 ==
LOC: 2NENU 19:31 → EMEROOARM 19:31 → 2NENU 21:56 → SUATTDRO 05-16 15:30
PROVIDERS: ADMIT Internal Medicine; ATTEND Internal Medicine